=== PATIENT | female | born 1950 | race Caucasian/White ===

== ENCOUNTER 2025-06-16 15:42 | Emergency (ER) | payer MEDICARE, SELFPAY ==
[2025-06-16] VITALS (54 sets, daily range): BP systolic 107–250; BP diastolic 67–152; PULSE 49–72; RESP 11–30; TEMP 36.1; O2SAT 83–99
--- NOTE | 2025-06-16 15:30 | RT.EKG_ITS ---
APPROVED REPORT Exam: Resting ECG Reason for Exam: Chest Pain Patient Location: E HR:59 bpm ECG Measurements Heart Rate 59 AXIS WI 185 P 60 QRSd 100 QRS 25 QT 443 T 11 QTc 441 Conclusion Sinus bradycardia...rate< 60 Ventricular premature complex...V complex w/ short R-R interval Aberrant conduction of SV complex(es)...aberrant shape, [place] 80-220
--- NOTE | 2025-06-16 15:45 | DI.RAD_ITS ---
Exam(s) XR PORTABLE CHEST AP EXAM: XR PORTABLE CHEST AP CLINICAL HISTORY: Chest pain TECHNIQUE: 2D digital imaging was performed of the chest. One image was obtained. An AP view was obtained. COMPARISON: No exams were available for comparison FINDINGS: MEDIASTINUM: Normal. HEART: Normal. PULMONARY VASCULATURE: Normal. LUNGS: Clear. PLEURAL SPACE: No pleural effusion or pneumothorax. BONE:Within normal limits for the patient's age. OTHER FINDINGS:There are distended loops of bowel present. There is a large collection of air beneath the left hemidiaphragm. It appears to be bowel related and may represent the distended splenic flexure of the colon or the stomach. An acute abdominal series should be considered for further evaluation. Alternatively, a CT scan of the abdomen and pelvis may be obtained. IMPRESSION: 1. No acute pulmonary findings. 2. Distended bowel loops particularly in the left upper quadrant. If there is concern for bowel obstruction, a CT scan of the abdomen and pelvis should be considered. DATA REPOSITORY: RADIATION DOSE DELIVERED:
--- NOTE | 2025-06-16 15:45 | DI.CT_ITS ---
Exam(s) CT THORAX ABD/PEL CTA EXAM: CT THORAX ABD/PEL CTA CLINICAL HISTORY: Left sided Chest pain, retroperitoneal pain, HTN. TECHNIQUE: Imaging Protocol: Axial CT angiography was performed with multi- slice acquisition and multi-planar and/or 3D reconstructions. Lung Computer Aided Detection (CAD) was utilized. CONTRAST MATERIAL: Intravenous: Omnipaque 350 contrast volume:100 mL Oral: No COMPARISON: CR XR PORTABLE CHEST AP from 06/16/2025 FINDINGS: CHEST: Tracheobronchial tree: Patent where visualized. There is no evidence of bronchiectasis. Pulmonary parenchyma: No consolidation or dominant measurable mass. No architectural distortion. Pulmonary Arteries: No evidence of filling defect to suggest pulmonary emboli. Mediastinum and María: No dominant adenopathy or fluid collection. The esophagus is unremarkable. Visualized thyroid: Unremarkable. Pleura: No effusion or pneumothorax. Heart: The heart is not dilated. No coronary artery calcifications are seen. No pericardial effusion. Aorta: Thoracic aorta non-dilated. There is no evidence of dissection. Minimal atherosclerotic calcification is present. Soft Tissues: Unremarkable. Bones: Within normal limits for the patient's age. ABDOMEN AND PELVIS: Abdomen: Celiac axis/mesenteric arteries: No evidence of occlusion or significant stenosis. Renal Arteries: No evidence of occlusion or significant stenosis. Aorta: No evidence of occlusion or significant stenosis. No aneurysm or dissection. Mild atherosclerotic calcification is seen. Pelvis: Iliac Arteries: No evidence of occlusion or significant stenosis. Mild atherosclerotic calcification is seen. Common Femoral Arteries: No evidence of occlusion or significant stenosis. ABDOMEN: Liver: Normal density. There are simple cysts seen in the liver. The largest is in the dome of the liver and measures 2.3 x 1.4 cm. There are no suspicious hepatic masses. Portal, superior mesenteric and splenic veins: Unremarkable. Gallbladder and Biliary Tract: The gallbladder is absent. No significant biliary ductal dilatation is present. Pancreas: Normal density, no abnormal calcifications or inflammatory process. Spleen: Normal. Adrenals: No masses seen. Kidneys: Normal size, contour and axis. No radiodense stones or obstructive uropathy. No masses seen. There is a prominent left extrarenal pelvis. Bowel: There is a large amount of stool seen in the rectosigmoid colon. The stomach is not significantly distended limiting evaluation. There is no evidence of an appendicitis. The cecum is located in the left abdomen. The ileocecal valve is located on series 27, images 43-46. There is no pneumatosis. The cecum measures up to 8.8 cm in diameter. There is no bowel wall thickening the small bowel is of normal caliber. Peritoneal Cavity: No ascites, collection or mesenteric inflammatory response. No free air. Lymph Nodes: Within normal limits. Bones: Within normal limits for the patient's age. Soft Tissues: There are 2 small fat containing anterior abdominal wall hernia in the midline. PELVIS: Bladder: Symmetric distention, no gross wall thickening. Reproductive Organs: Unremarkable as visualized. Lymph Nodes: Within normal limits. Bones: Within normal limits for the patient's age. IMPRESSION: 1. There is redundant sigmoid colon with extension into the right upper quadrant. The sigmoid colon is distended with stool. There is marked dilatation of the large bowel proximal to the sigmoid colon all the way to the level of the cecum. The cecum is located in the left abdomen. The findings raise a question of a sigmoid volvulus. 2. There is no pneumatosis, bowel wall thickening or pneumoperitoneum. 3. No evidence of pulmonary emboli, thoracic aortic aneurysm or dissection. 4. No acute pulmonary process. 5. The preliminary [facility] report was reviewed. RADIATION DOSE DELIVERED: 550.14mGy.cm Total DLP DATA REPOSITORY: All CT scans at this facility are submitted to the National Radiology Data Registry (NRDR) Dose Index Registry (DIR) with the [employer] (ACR). RADIATION OPTIMIZATION: All CT scans at this facility use at least one of these dose optimization techniques: automated exposure control; mA and/or kV adjustment per patient size (includes targeted exams where dose is matched to clinical indication); or iterative reconstruction.
--- NOTE | 2025-06-16 15:54 | W.ED.GENAD ---
Discharge Plan Disposition Patient Disposition: Against Medical Advice Condition: Serious Discharge Details Clinical Impression: Sigmoid volvulus, Chilaiditi's syndrome, Hypertensive urgency, Chest pain Primary Care Provider: Unknown,Unknown ED Provider: Patti Trujillo Home Meds and New Rx's Prescriptions: Continued cetirizine 10 MG tablet 10 mg PO DAILY albuterol sulfate [Ventolin HFA] 200 PUFF HFA aerosol inhaler 2 puff Inhalation DIRECTED PRN fluocinolone 15 GM cream 1 inch Topical BID naproxen sodium 220 MG capsule 500 mg PO PRN PRN calcium 600 mg capsule 600 mg PO DAILY pantoprazole 40 mg tablet,delayed release (DR/EC) 40 mg PO DAILY cholecalciferol (vitamin D3) [Vitamin D3] 10 mcg (400 unit) tablet 800 unit PO DAILY zonisamide 100 mg capsule 200 mg PO QHS atorvastatin [Lipitor] 20 mg tablet 20 mg PO DAILY Dulera 100-5 mcg/actuation HFA aerosol inhaler 1 inh inhalation DAILY Rx Instructions: Take 1 inhalation during the day and 2 inhalations at HS Linzess 290 mcg capsule 290 mcg PO DAILY metoprolol succinate 25 mg tablet extended release 24 hr 25 mg PO DAILY aspirin 81 mg capsule 81 mg PO DAILY nitroglycerin 0.4 mg tablet, sublingual 0.4 mg sublingual Q5M Rx Instructions: do not exceed 3 doses per episode sumatriptan succinate 25 mg tablet 25 mg PO Q2H PRN Rx Instructions: do not exceed 8 doses per 24 hrs cyclobenzaprine 5 mg tablet 5 mg PO DAILY PRN trazodone 50 mg tablet 50 mg PO QHS PRN alum-mag hydroxide-simeth [Antacid] 200-200-20 mg/5 mL suspension 5 ml PO QHS PRN Rx Instructions: administer between meals and at bedtime fluorouracil 5 % cream 1 applic topical ONCE latanoprost 0.005 % drops 1 drp ophthalmic (eye) DAILY PRN triamcinolone acetonide 55 mcg intranasal DAILY PRN Discharge Instructions Instructions: Small bowel obstruction, High blood pressure emergencies, Chest Pain, Adult ED Additional Instructions: At this time you have chosen to leave AGAINST MEDICAL ADVICE. The CT image does show that you have concerning findings for something called a sigmoid volvulus which is a twisting of your bowel. This is a surgical emergency and needs to be dealt with as soon as possible. Delay or failure to address this may result in worsening condition, disability, worsening infection and up to and including . You also did present with chest pain and high blood pressure today. You were given an additional metoprolol 25 mg p.o. for your blood pressure and 10 mg of hydralazine IV. [facility] was consulted however, they do not have capacity at this time for that to accept the transfer. You also did decline for me to call other facilities. I do stressed the importance of your situation and that is very serious. Please return to the ER as soon as possible if you change your mind Referrals: [facility] [Outside] - 1 day Referral Note: Sigmoid volvulus Clinical Impression: Hypertensive urgency; Sigmoid volvulus; Chest pain HPI General Mode of arrival: EMS. Date/Time Provider Initiated Documentation: 06/16/25 15:50. Limitations to Documentation: no limitations. Information obtained by: patient, EMS, RN notes reviewed and old records reviewed. HPI Narrative: 74 year old female presents to the ER with cc of left sided CP which radiates into her back and left arm which began day before yesterday. Took 1 SL NTG at home and EMS gave 3 SL NTG with little relief, brought pain down from a 8/10 to 5/10. HTN with SBP of 200 on scene. Patient denies SOB, Productive cough, swelling legs, N/V/D or recent trips in a plane or a car. She is a former fake smoker. Hx of Kalpana cholesterol, Anxiety, GERD, Bronciectasis, Asthma, Related Data Home Medications ?Medication ?Instructions ?Recorded ?Confirmed albuterol sulfate 90 mcg/actuation 2 puff inhalation DIRECTED PRN 03/01/14 06/16/25 aerosol inhaler (Ventolin HFA) cetirizine 10 mg tablet 10 mg PO DAILY 03/01/14 06/16/25 fluocinolone 0.025 % topical cream 1 inch topical BID 03/01/14 06/16/25 naproxen sodium 220 mg capsule 500 mg PO PRN PRN 03/01/14 06/16/25 aluminum-mag hydroxide-simethicone 5 ml PO QHS PRN 06/16/25 06/16/25 200 mg-200 mg-20 mg/5 mL oral susp (Antacid) aspirin 81 mg capsule 81 mg PO DAILY 06/16/25 06/16/25 atorvastatin 20 mg tablet (Lipitor) 20 mg PO DAILY 06/16/25 06/16/25 calcium 600 mg capsule 600 mg PO DAILY 06/16/25 06/16/25 cholecalciferol (vitamin D3) 10 800 unit PO DAILY 06/16/25 06/16/25 mcg (400 unit) tablet (Vitamin D3) cyclobenzaprine 5 mg tablet 5 mg PO DAILY PRN 06/16/25 06/16/25 fluorouracil 5 % topical cream 1 applic topical ONCE 06/16/25 06/16/25 latanoprost 0.005 % eye drops 1 drp ophthalmic (eye) DAILY PRN 06/16/25 06/16/25 linaclotide 290 mcg capsule 290 mcg PO DAILY 06/16/25 06/16/25 (Linzess) metoprolol succinate 25 mg 25 mg PO DAILY 06/16/25 06/16/25 tablet,extended release 24 hr mometasone-formoterol HFA 100 1 inh inhalation DAILY 06/16/25 06/16/25 mcg-5 mcg/actuation aerosol inhaler (Dulera) nitroglycerin 0.4 mg sublingual 0.4 mg sublingual Q5M 06/16/25 06/16/25 tablet pantoprazole 40 mg tablet,delayed 40 mg PO DAILY 06/16/25 06/16/25 release sumatriptan succinate 25 mg tablet 25 mg PO Q2H PRN 06/16/25 06/16/25 trazodone 50 mg tablet 50 mg PO QHS PRN 06/16/25 06/16/25 triamcinolone acetonide 55 mcg intranasal DAILY PRN 06/16/25 06/16/25 zonisamide 100 mg capsule 200 mg PO QHS 06/16/25 06/16/25 Allergies Allergy/AdvReac Type Severity Reaction Status Date / Time Penicillins Allergy Severe Anaphylaxsi Unverified 06/16/25 15:57 s oxcarbazepine Allergy Intermediate Skin Rash Unverified 06/16/25 15:57 Tetracyclines Allergy Intermediate Skin Rash Unverified 06/16/25 15:57 adhesive Allergy Mild Skin Rash Unverified 06/16/25 15:57 Latex, Natural Rubber Allergy Mild Skin Rash Unverified 06/16/25 15:57 hydroxyzine AdvReac Intermediate anxiety Unverified 06/16/25 15:57 zolpidem (Zolpidem) AdvReac Unknown unknown Unverified 06/16/25 15:57 General Stated Complaint: Chest Pain RADHA: 3 Review of Systems All systems reviewed & are unremarkable except as noted in HPI and below Constitutional Constitutional: Reports as per HPI and Reports headache(s) ENT Ears, Nose, Mouth, and Throat: Reports headache(s) Cardiovascular Cardiovascular: Reports chest pain, Denies syncope, Denies pedal edema, Denies leg edema, Denies lightheadedness, Reports radiating jaw, neck or arm pain and Denies dyspnea Respiratory Respiratory: Denies cough and Denies dyspnea Gastrointestinal Gastrointestinal: Denies abdominal pain, Reports constipation, Denies nausea and Denies vomiting Musculoskeletal Musculoskeletal: Reports back pain Neurologic Neurologic: Denies syncope and Reports headache(s) Exam Narrative Exam Narrative: Constitutional: Alert and oriented x3. Appears stated age. Normal body habitus. Head: Normocephalic, no trauma. Eyes: Pupils PERRL, Red reflex noted, EOM's intact. Eyelids symmetrical without lesions, discharge, or swelling. ENT: Bilateral TM's WNL, External ear normal to inspection, no mastoid TTP, swelling, or erythema, Nasal turbinates WNL, no nasal discharge. Normal dentition, Posterior pharynx WNL, no exudate. Chest: RRR, Normal S1, S2, distal pulses intact. Resp: Lungs clear to auscultation bilaterally, no wheezes, rales, or rhonchi. Abdomen: Distended, non-tender to palpation Musculoskeletal: Normal gait, Moves all 4 extremities without difficulty. Skin: No suspicious rashes or lesions. Capillary refill less than 2 sec. Neurologic: Cranial nerves II-XII intact. Alert and oriented x 3. Motor: No deficits noted. Sensory: Intact bilaterally all 4 extremities. Hematologic/Lymphatic: No ecchymosis, no lymphadenopathy. Course Vital Signs Vital signs: Vital Signs Temperature 36.1 C L 06/16/25 15:46 Pulse 61 06/16/25 15:46 Respiratory Rate 12 06/16/25 15:46 Blood Pressure 141/90 H 06/16/25 15:46 Pulse Oximetry 98 06/16/25 15:46 Temperature 36.1 C L 06/16/25 15:46 Temperature Source Temporal Artery Scan 06/16/25 15:46 Pulse 61 06/16/25 15:46 Respiratory Rate 12 06/16/25 15:46 Blood Pressure 141/90 H 06/16/25 15:46 Blood Pressure Position Sitting 06/16/25 15:46 Pulse Oximetry 98 06/16/25 15:46 Oxygen Delivery Method Room Air 06/16/25 15:46 Oxygen Flow Rate 0 06/16/25 15:46 Medical Decision Making 74 year old female presents to the ER with cc of left sided CP which radiates into her back and left arm which began day before yesterday. Took 1 SL NTG at home and EMS gave 3 SL NTG with little relief, brought pain down from a 05/09 to 02/06. HTN with SBP of 200 on scene. Patient denies SOB, Productive cough, swelling legs, N/V/D or recent trips in a plane or a car. She is a former fake smoker. Hx of Kalpana cholesterol, Anxiety, GERD, Bronciectasis, Asthma, No leukocytosis, CMP largely within normal limits anion gap 12.6 creatinine 1.1 GFR is 52.4 proBNP slightly elevated at 471. Serial troponins are downtrending, lipase 40. Received call from [facility] for concern for sigmoid volvulus, will page surgery. Patient states that she has had increased dilated bowel for years, she does state that she has not had a bowel movement in the last 3 to 4 days but denies any abdominal pain. She is complaining of a headache and is requesting to take one of her 25 mg sumatriptan tablets. 1938: Surgery paged. 1945: Spoke with Dr. Jodie Perla with Surgery who agrees to look at CT and eval patient. 2030: Dr. Perla here at for eval, 2100: Informed by my colleague that patient is refusing surgery or further evaluation and treatment here and is requesting to be transferred to [facility]. Please see Dr. Lindsey consult note. Images pushed to [facility]. 2111: Upon further discussion with patient she is requesting to go to [facility] and is requesting I call her Neurologist, discussed that I will speak to the surgeon thermometer production worker, transfer center called. Patient remains hypertensive despite an additional 25 mg of metoprolol which patient normally takes, 10 mg of hydralazine IV ordered will continue to monitor. 2133: Spoke with transfer center they do not have capacity to take patient at this time. 2210: Discussed at length with patient regarding situation and the volvulus with recommendation for further surgical care patient is refusing to have surgery here and would like to speak with her neurologist at [facility] Dr. Matos, discussed risks and benefits up to including disability and worsening condition. Patient was just given hydralazine 10 mg IV she is on the phone speaking with her family for a ride. Patient will be leaving AGAINST MEDICAL ADVICE. At this time her blood pressure is 201/79 heart rate of 63 O2 sat is 98% on room air respirations 14. I also did offer to speak with [facility] for transfer which patient declined at this time. 2212: Spoke with Dr. Marcano with general surgery at [facility], unfortunately with no capacity at [facility] and capacity and services here they are not able to accept patient at this time. She recommends to defer to Surgeon here. BP at time of AMA is improved after Hydralazine 195/67 Patient requesting to leave AMA. The patient appears clinically sober and is not under the influence of any known substances. Discussed risks and benefits with patient. Patient verbalizes understanding of situation and the risks of leaving including worsening condition, developing disability, including but not limited to . Discussed results of labs and imaging, if they were performed and recommendations for further treatment and/or observation. The patient verbalizes understanding of the results discussed. At this time patient has opted to leave against medical advice. Patient is alert and oriented and has the capacity to make own decisions. Medical Records Medical records reviewed: Yes I reviewed the patient's medical records. Imaging Data Radiologic Study: Imaging: CT Scan Radiologist's impression: COMPARISON: CR XR PORTABLE CHEST AP 06/16/2025 16:41 FINDINGS: VASCULATURE: Pulmonary arteries: No pulmonary emboli. Aorta: No aortic aneurysm. No aortic dissection. Celiac trunk and mesenteric arteries: No occlusion or significant stenosis. Renal arteries: No occlusion or significant stenosis. Right iliac arteries: No occlusion or significant stenosis. Left iliac arteries: No occlusion or significant stenosis. CHEST: Lungs: Scattered microatelectasis. Pleural spaces: No pneumothorax. No pleural effusion. Heart: Mild cardiomegaly. Diaphragm: Elevated left hemidiaphragm. ABDOMEN AND PELVIS: Liver: Benign hepatic cyst(s), no followup necessary. Gallbladder and biliary ducts: Cholecystectomy. Typical caliber of the CBD for a post cholecystectomy patient. Pancreas: No mass. No ductal dilation. Spleen: No splenomegaly. Adrenal glands: No mass. Kidneys and ureters: Mild left hydronephrosis, renal pelvic dilation greater than caliceal dilation, suggesting chronic UPJ obstruction . No significant right hydronephrosis. No renal masses. Stomach and bowel: Stomach is decompressed. No pathologic dilation of the duodenum. Focal twisting of the sigmoid colon along its mesentery, left lower quadrant; dilation of more proximal colon with gas and stool measuring up to 10 cm in diameter; large volume of stool in the cecum. No wall thickening of the colon. No focal pneumatosis. A few fluid-filled small bowel loops without evidence of a significant small bowel obstruction. Left-sided small bowel loops are upper limits of normal. Appendix: No evidence of appendicitis. Intraperitoneal space: No free air. No significant fluid collection. Urinary bladder: No mass. Reproductive: Unremarkable as visualized. Lymph nodes: No enlarged lymph nodes. Bones/joints: Chronic healed left rib deformities. No acute fracture or subluxation. Soft tissues: Unremarkable. IMPRESSION: 1. Sigmoid volvulus. Large volume of more proximal colonic gas and stool without evidence of colitis. Minor small bowel ileus without mouna mechanical obstruction. 2. Mild left hydronephrosis, renal pelvic dilation greater than caliceal dilation, suggesting chronic UPJ obstruction . 3. Additional findings as described. Thank you for allowing us to participate in the care of your patient. Dictated and Authenticated by: Taylor Davis MD Lab Data Lab results reviewed: Yes I reviewed the patient's lab results. Labs: Laboratory Tests Range/Units 06/16/25 06/16/25 06/16/25 15:20 16:48 17:48 WBC (4.4-10.8) 10^3/uL 9.12 RBC (3.93-5.22) 10^6/uL 4.52 Hgb (11.2-15.7) g/dL 12.5 Hct (36.0-46.0) % 38.3 MCV (80-95) fL 85 MCH (27.0-33.0) pg 27.7 MCHC (32.0-36.0) % 32.6 RDW (11.7-14.6) % 13.0 Plt Count (130-400) 10^3/uL 244 MPV (8.0-11.0) fL 9.9 Immature Gran % % 0.2 Neutrophils % % 51.3 Lymphocytes % % 36.2 Monocytes % % 8.6 Eosinophils % % 3.0 Basophils % % 0.7 Nucleated RBC % (0.0-0.3) % 0.0 Absolute Neutrophils (1.2-6.7) 10^3/uL 4.69 Absolute Lymphocytes (1.2-3.4) 10^3/uL 3.30 Absolute Monocytes (0.1-0.8) 10^3/uL 0.78 Absolute Eosinophils (0.0-0.7) 10^3/uL 0.27 Absolute Basophils (0.0-0.2) 10^3/uL 0.06 Sodium (136-145) mmol/L 143 Potassium (3.5-5.1) mmol/L 3.6 Chloride (98-107) mmol/L 105 Carbon Dioxide (21.0-32.0) mmol/L 25.4 Anion Gap (3-11) mmol/L 12.6 H BUN (7-18) mg/dL 18 Creatinine (0.55-1.02) mg/dL 1.1 H Est GFR (CKD-EPI 2020) (mL/min/1.73m2) 52.40 Glucose (74-106) mg/dL 84 Calcium (8.5-10.1) mg/dL 9.6 Magnesium (1.8-2.4) mg/dL 2.0 Total Bilirubin (0.2-1.0) mg/dL 0.8 AST (15-37) U/L 12 L ALT (14-59) U/L 16 Alkaline Phosphatase (46-116) U/L 59 Troponin I Cancelled 6 5 NT-Pro-B Natriuret Pep (<300) pg/mL 471 H Total Protein (6.4-8.2) g/dL 7.3 Albumin (3.4-5.0) g/dL 4.4 Lipase (<78) U/L 40 Range/Units 06/16/25 18:52 WBC (4.4-10.8) 10^3/uL RBC (3.93-5.22) 10^6/uL Hgb (11.2-15.7) g/dL Hct (36.0-46.0) % MCV (80-95) fL MCH (27.0-33.0) pg MCHC (32.0-36.0) % RDW (11.7-14.6) % Plt Count (130-400) 10^3/uL MPV (8.0-11.0) fL Immature Gran % % Neutrophils % % Lymphocytes % % Monocytes % % Eosinophils % % Basophils % % Nucleated RBC % (0.0-0.3) % Absolute Neutrophils (1.2-6.7) 10^3/uL Absolute Lymphocytes (1.2-3.4) 10^3/uL Absolute Monocytes (0.1-0.8) 10^3/uL Absolute Eosinophils (0.0-0.7) 10^3/uL Absolute Basophils (0.0-0.2) 10^3/uL Sodium (136-145) mmol/L Potassium (3.5-5.1) mmol/L Chloride (98-107) mmol/L Carbon Dioxide (21.0-32.0) mmol/L Anion Gap (3-11) mmol/L BUN (7-18) mg/dL Creatinine (0.55-1.02) mg/dL Est GFR (CKD-EPI 2020) (mL/min/1.73m2) Glucose (74-106) mg/dL Calcium (8.5-10.1) mg/dL Magnesium (1.8-2.4) mg/dL Total Bilirubin (0.2-1.0) mg/dL AST (15-37) U/L ALT (14-59) U/L Alkaline Phosphatase (46-116) U/L Troponin I Cancelled NT-Pro-B Natriuret Pep (<300) pg/mL Total Protein (6.4-8.2) g/dL Albumin (3.4-5.0) g/dL Lipase (<78) U/L PFSH All Active Problems (Updated 06/16/25 @ 22:08 by Patti Trujillo NP) Chest pain (Acute) Hypertensive urgency (Acute) Sigmoid volvulus (Acute) Chilaiditi's syndrome (Acute) Social History Smoking/Tobacco Use Status: Former Tobacco Use Smoking risk assessment performed?: Yes Alcohol Intake: current Drug use: Current Sobriety
[2025-06-16 16:03] LABS: Abs Immature Grans 0.02 10^3/uL (0.0-0.06); HCT 38.3 % (36.0-46.0); HGB 12.5 g/dL (11.2-15.7); Immature Grans % 0.2 %; MCH 27.7 pg (27.0-33.0); MCHC 32.6 % (32.0-36.0); MCV 85 fL (80-95); MPV 9.9 fL (8.0-11.0); Platelet Count 244 10^3/uL (130-400); RBC 4.52 10^6/uL (3.93-5.22); RDW 13.0 % (11.7-14.6); RDW-SD 39.8 fL; WBC 9.12 10^3/uL (4.4-10.8)
[2025-06-16 17:00] LABS: ALT 16 U/L (14-59); AST 12 U/L (15-37); Albumin 4.4 g/dL (3.4-5.0); Alkaline Phosphatase 59 U/L (46-116); Anion Gap 12.6 mmol/L (3-11); BUN 18 mg/dL (7-18); Bilirubin, Total 0.8 mg/dL (0.2-1.0); CO2 25.4 mmol/L (21.0-32.0); Calcium 9.6 mg/dL (8.5-10.1); Chloride 105 mmol/L (98-107); Estimated GFR 52.40 (mL/min/1.73m2); Glucose 84 mg/dL (74-106); Lipase 40 U/L (<78); Magnesium 2.0 mg/dL (1.8-2.4); NT-proBNP 471 pg/mL (<300); Potassium 3.6 mmol/L (3.5-5.1); Sodium 143 mmol/L (136-145); Total Protein 7.3 g/dL (6.4-8.2)
[2025-06-16 17:17] LABS: Troponin I 6 ng/L (<or=51)
[2025-06-16] MEDS: Normal Saline Flush 10 ML SYR IVP (18:01)
[2025-06-16] MEDS: Omnipaque 350 MG/ML 100 ML BTL IJ (18:01)
[2025-06-16] MEDS: Normal Saline - Diluent 50 ML VIAL IJ (18:01)
[2025-06-16 18:16] LABS: Troponin I 5 ng/L (<or=51)
[2025-06-16] MEDS: Metoprolol 25 MG TAB PO (19:07)
--- NOTE | 2025-06-16 19:25 | DI.VRAD_ITS ---
Addendum created by Taylor Davis MD on 06/16/2025 7:28:04 PM EDT: This report contains findings that may be critical to patient care. The pertinent findings were communicated via telephone with JENNIFER HOFF at 19:27 EDT on 06/16/2025. The findings were acknowledged and understood. Initial report created on 06/16/2025 7:25:18 PM EDT: PROCEDURE INFORMATION: Exam: CTA Chest With Contrast CTA Abdomen and Pelvis With Contrast Exam date and time: 06/16/2025 18:04 Age: 74 years old Clinical indication: Other: Left sided chest pain, retroperitoneal pain, HTN TECHNIQUE: Imaging protocol: Computed tomographic angiography of the chest with contrast. Exam focused on the arteries. Computed tomographic angiography of the abdomen and pelvis with contrast. Exam focused on the arteries. 3D rendering (Not supervised by radiologist): MIP and/or 3D reconstructed images were created by the technologist. Contrast material: OMNIPAQUE 350; Contrast volume: 100 ml; Contrast route: INTRAVENOUS (IV); COMPARISON: CR XR PORTABLE CHEST AP 06/16/2025 16:41 FINDINGS: VASCULATURE: Pulmonary arteries: No pulmonary emboli. Aorta: No aortic aneurysm. No aortic dissection. Celiac trunk and mesenteric arteries: No occlusion or significant stenosis. Renal arteries: No occlusion or significant stenosis. Right iliac arteries: No occlusion or significant stenosis. Left iliac arteries: No occlusion or significant stenosis. Thyroid: Small thyroid nodule statistically likely benign. Follow-up as per institutional protocol. CHEST: Lungs: Scattered microatelectasis. Pleural spaces: No pneumothorax. No pleural effusion. Heart: Mild cardiomegaly. Diaphragm: Elevated left hemidiaphragm. ABDOMEN AND PELVIS: Liver: Benign hepatic cyst(s), no followup necessary. Gallbladder and biliary ducts: Cholecystectomy. Typical caliber of the CBD for a post cholecystectomy patient. Pancreas: No mass. No ductal dilation. Spleen: No splenomegaly. Adrenal glands: No mass. Kidneys and ureters: Mild left hydronephrosis, renal pelvic dilation greater than caliceal dilation, suggesting chronic UPJ obstruction . No significant right hydronephrosis. No renal masses. Stomach and bowel: Stomach is decompressed. No pathologic dilation of the duodenum. Focal twisting of the sigmoid colon along its mesentery, left lower quadrant; dilation of more proximal colon with gas and stool measuring up to 10 cm in diameter; large volume of stool in the cecum. No wall thickening of the colon. No focal pneumatosis. A few fluid-filled small bowel loops without evidence of a significant small bowel obstruction. Left-sided small bowel loops are upper limits of normal. Appendix: No evidence of appendicitis. Intraperitoneal space: No free air. No significant fluid collection. Urinary bladder: No mass. Reproductive: Unremarkable as visualized. Lymph nodes: No enlarged lymph nodes. Bones/joints: Chronic healed left rib deformities. No acute fracture or subluxation. Soft tissues: Unremarkable. IMPRESSION: 1. Sigmoid volvulus. Large volume of more proximal colonic gas and stool without evidence of colitis. Minor small bowel ileus without mouna mechanical obstruction. 2. Mild left hydronephrosis, renal pelvic dilation greater than caliceal dilation, suggesting chronic UPJ obstruction . 3. Additional findings as described. Dictated and Authenticated by: Taylor Davis MD. Orderin Cassandra Armstrong MD
[2025-06-16] MEDS: ACETAMINOPHEN 1,000 MG/100 ML BAG 400 MG IVPB (19:56)
[2025-06-16] MEDS: Normal Saline 500 ML IV (19:57)
--- NOTE | 2025-06-16 21:06 | W.SURGCON ---
Date of service: 06/16/25 Time of Service: 21:06 Assessment and Plan Assessment and plan (1) Sigmoid volvulus: Status: Acute Assessment and plan: Patient is a 74-year-old female who presents to the ED today with ongoing chest pain radiating down her left arm, and hypertension. She also on further discussion with her endorses that she has not had a bowel movement in 3 to 4 days and endorses minimal flatus. She denies overt abdominal pain, nausea, vomiting, fevers, chills. On presentation she is afebrile and hypertensive. On exam her abdomen is distended, nontender to palpation, and well healed midline incision. Her laboratory findings are significant for an elevated BNP however otherwise they are unremarkable. During her workup in the emergency department she had a CT chest, abdomen and pelvis which was concerning for sigmoid volvulus. There is no evidence of free air or pneumatosis on this imaging. The finding of sigmoid volvulus was discussed with her extensively in the emergency department. It was discussed with her that the recommendation would be to undergo endoscopic decompression with colonoscopy as an attempted first-line management as soon as possible. It was also discussed with her that pending the ability to perform endoscopic decompression she may require further surgery with a possible exploratory laparotomy, bowel resection, and possible colostomy. It was discussed with her that without further intervention there is risk for ischemia of the colon and potential perforation which could be life-threatening. She requested to be transferred to [facility] for further care and intervention given that all of her medical care is performed there. She refused any procedural or surgical intervention here this evening. She was cautioned regarding delaying treatment however is persistent about further care being performed at [facility]. This was discussed with the ED provider who will assist with next steps for transfer and Surgical Consultation. History of Present Illness Narrative: Patient is a 74-year-old female who presents to the ED today with ongoing chest pain radiating down her left arm, and hypertension. She states for the past 3 to 4 days she has had ongoing hypertension and intermittent chest pain. She states she has had pain like this before many years ago but this is much worse. She denies any overt cardiac history but states she follows closely with a neurologist at [facility]. She notes that she has a longstanding history of constipation. She states that she usually takes bowel meds including Linzess. She states that since she has had ongoing chest pain and hypertension she has not taken her regular bowel medications this week. She notes that her last bowel movement was 4 days ago. She states that she is passing a small amount of flatus. This is not entirely unusual for her. She notes that she has not eaten today given her ongoing chest pain. She denies associated nausea, vomiting, fevers, chills, abdominal pain. She endorses a past surgical history of a large abdominal incision for a cholecystectomy. She is unsure why she had an open procedure for this cholecystectomy in [place]. She states she has had a colonoscopy many years ago which was normal. She notes a family history of nonspecific bowel problems. Review of Systems Constitutional Constitutional: Denies chills, Denies fatigue, Denies fever(s), Denies headache(s) and Denies weakness Eyes Eyes: Denies change in vision ENT Ears, Nose, Mouth, and Throat: Denies dizziness, Denies headache(s), Denies nasal congestion and Denies sore throat Gastrointestinal Gastrointestinal: Denies abdominal pain, Denies nausea and Denies vomiting Musculoskeletal Musculoskeletal: Denies arthralgias Integumentary/Breasts Skin/Breast: Denies new lesions and Denies rash Neurologic Neurologic: Denies dizziness, Denies headache(s) and Denies weakness Endocrine Endocrine: Denies fatigue PFSH All Active Problems (Updated 06/16/25 @ 21:20 by Allison Singh MD) Sigmoid volvulus (Acute) Chilaiditi's syndrome (Acute) Social History Smoking/Tobacco Use Status: Former Tobacco Use Smoking risk assessment performed?: Yes Alcohol Intake: current Drug use: Current Sobriety Exam Narrative Exam Narrative: General: Well appearing, no acute distress. Skin: Good turgor, no visible rashes or lesion HEENT: Normocephalic, atraumatic, no visible masses, neck supple CV: Regular rate Lungs: Bilateral equal chest rise, non-labored breathing Abdomen: Soft, non-tender to palpation, distended, no rebound or guarding Extremities: Warm, well perfused Neurologic: No focal deficits Psychiatric: Alert and oriented, normal mood and affect Results Last Vital Signs Temp 36.1 C L 06/16/25 15:46 Pulse 59 L 06/16/25 19:21 Resp 18 06/16/25 19:21 BP 171/105 H 06/16/25 18:46 Pulse Ox 97 06/16/25 19:21 Labs 06/16/25 15:20 06/16/25 15:20 Labs: Laboratory Results - last 24 hr 06/16/25 06/16/25 06/16/25 15:20 16:48 17:48 WBC 9.12 RBC 4.52 Hgb 12.5 Hct 38.3 MCV 85 MCH 27.7 MCHC 32.6 RDW 13.0 Plt Count 244 MPV 9.9 Immature Gran % 0.2 Neutrophils % 51.3 Lymphocytes % 36.2 Monocytes % 8.6 Eosinophils % 3.0 Basophils % 0.7 Nucleated RBC % 0.0 Absolute Neutrophils 4.69 Absolute Lymphocytes 3.30 Absolute Monocytes 0.78 Absolute Eosinophils 0.27 Absolute Basophils 0.06 Sodium 143 Potassium 3.6 Chloride 105 Carbon Dioxide 25.4 Anion Gap 12.6 H BUN 18 Creatinine 1.1 H Est GFR (CKD-EPI 2020) 52.40 Glucose 84 Calcium 9.6 Magnesium 2.0 Total Bilirubin 0.8 AST 12 L ALT 16 Alkaline Phosphatase 59 Troponin I Cancelled 6 5 NT-Pro-B Natriuret Pep 471 H Total Protein 7.3 Albumin 4.4 Lipase 40 06/16/25 18:52 WBC RBC Hgb Hct MCV MCH MCHC RDW Plt Count MPV Immature Gran % Neutrophils % Lymphocytes % Monocytes % Eosinophils % Basophils % Nucleated RBC % Absolute Neutrophils Absolute Lymphocytes Absolute Monocytes Absolute Eosinophils Absolute Basophils Sodium Potassium Chloride Carbon Dioxide Anion Gap BUN Creatinine Est GFR (CKD-EPI 2020) Glucose Calcium Magnesium Total Bilirubin AST ALT Alkaline Phosphatase Troponin I Cancelled NT-Pro-B Natriuret Pep Total Protein Albumin Lipase Imaging Imaging Studies: CT Abdomen/Pelvis 06/16/25 Impression: 1. Sigmoid volvulus. Large volume of more proximal colonic gas and stool without evidence of colitis. Minor small bowel ileus without mouna mechanical obstruction. 2. Mild left hydronephrosis, renal pelvic dilation greater than caliceal dilation, suggesting chronic UPJ obstruction. 3. Additional findings as described.
[2025-06-16] MEDS: hydrALAZINE 20 MG/ML VIAL 10 MG IVP (21:54)
== END 2025-06-16 22:40 | disposition left against medical advice (07) ==
PROVIDERS: Emergency Provider Registered Nurse Emergency
DX: R07.9 Chest pain, unspecified (principal); K56.2 Volvulus; K59.89 Other specified functional intestinal disorders; I16.0 Hypertensive urgency; I10 Essential (primary) hypertension; Z79.82 Long term (current) use of aspirin; Z87.891 Personal history of nicotine dependence
CPT/HCPCS: 00123; 71275; 80053; 83690; 93005; 96365; 96375; 99285; 71045; 74174; 83735; 83880; 84484; 85025; 93010; J0131; J0360; J3490

== ENCOUNTER 2025-06-17 18:03 | Observation (INO) | payer MEDICARE, SELFPAY ==
[2025-06-17] VITALS (96 sets, daily range): BP systolic 142–241; BP diastolic 65–110; PULSE 48–95; RESP 9–25; TEMP 36.8; O2SAT 91–99
--- NOTE | 2025-06-17 18:00 | RT.EKG_ITS ---
APPROVED REPORT Exam: Resting ECG Reason for Exam: AMS, Positive Blood Cultures Patient Location: E HR:57 bpm ECG Measurements Heart Rate 57 AXIS WV 195 P 69 QRSd 98 QRS 43 QT 531 T -88 QTc 516 Conclusion Sinus bradycardia...rate< 60 Abnormal T, consider ischemia, anterior leads...T <-0.20mV, V2-V4 Prolonged QT interval...QTc >500mS
--- NOTE | 2025-06-17 18:15 | DI.RAD_ITS ---
Exam(s) XR CHEST 2V PA LATERAL EXAM: XR CHEST 2V PA LATERAL CLINICAL HISTORY: chest pain. TECHNIQUE: 2D digital imaging was performed. COMPARISON: CR XR PORTABLE CHEST AP from 06/16/[address] THORAX ABD/PEL CTA from 06/16/2025 FINDINGS: 2 views: Heart size is normal. The mediastinum is not widened. Elevated left hemidiaphragm is again noted with intraluminal air within what is probably the splenic flexure of the colon at this level. There is some platelike atelectasis in the left lung base just above this level, best seen on the lateral view. No infiltrates nor pleural effusions. No pulmonary edema. There is no herniation of abdominal contents into the chest. IMPRESSION: There is subsegmental platelike atelectasis in the left lung base just above the elevated left hemidiaphragm. There are no confluent infiltrates nor pleural effusions. DATA REPOSITORY: RADIATION DOSE DELIVERED:
[2025-06-17 18:37] LABS: Abs Immature Grans 0.02 10^3/uL (0.0-0.06); HCT 38.1 % (36.0-46.0); HGB 12.4 g/dL (11.2-15.7); Immature Grans % 0.2 %; MCH 27.3 pg (27.0-33.0); MCHC 32.5 % (32.0-36.0); MCV 84 fL (80-95); MPV 9.8 fL (8.0-11.0); Platelet Count 272 10^3/uL (130-400); RBC 4.54 10^6/uL (3.93-5.22); RDW 13.1 % (11.7-14.6); RDW-SD 39.8 fL; WBC 8.99 10^3/uL (4.4-10.8)
[2025-06-17 18:59] LABS: ALT 17 U/L (14-59); AST 15 U/L (15-37); Albumin 4.2 g/dL (3.4-5.0); Alkaline Phosphatase 54 U/L (46-116); Anion Gap 12.1 mmol/L (3-11); BUN 28 mg/dL (7-18); Bilirubin, Total 0.8 mg/dL (0.2-1.0); CO2 24.9 mmol/L (21.0-32.0); Calcium 9.6 mg/dL (8.5-10.1); Chloride 104 mmol/L (98-107); Estimated GFR 36.12 (mL/min/1.73m2); Glucose 106 mg/dL (74-106); Lipase 52 U/L (<78); Magnesium 2.0 mg/dL (1.8-2.4); NT-proBNP 1000 pg/mL (<300); Sodium 141 mmol/L (136-145); Total Protein 7.4 g/dL (6.4-8.2); Troponin I 7 ng/L (<or=51)
[2025-06-17 19:04] LABS: Potassium 2.6 mmol/L (3.5-5.1)
[2025-06-17] MEDS: MAGNESIUM SULFATE 1 GM/100 ML BAG IV_INF (19:12)
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
[2025-06-17 19:39] LABS: Troponin I 7 ng/L (<or=51)
[2025-06-17] MEDS: Potassium Chloride 20 MEQ TABCR 40 MEQ PO ×2 (20:34→22:13)
[2025-06-17] MEDS: POTASSIUM CHLORIDE 10 MEQ/100 ML BAG 100 MEQ IV_INF (20:35)
[2025-06-17] MEDS: Normal Saline 1,000 ML 125 ML IV (20:54)
[2025-06-17 21:11] LABS: Troponin I 7 ng/L (<or=51)
--- NOTE | 2025-06-17 22:22 | NUR.NOTE ---
ed PA aware of PTs BPNursing Note:
[2025-06-17] MEDS: Metoprolol 25 MG TAB PO (22:26)
--- NOTE | 2025-06-17 22:30 | DI.RAD_ITS ---
Exam(s) XR ABDOMEN FLAT UPRIGHT EXAM: 2D digital imaging was performed. CLINICAL HISTORY: abnormal gas pattern. COMPARISON: CT CT THORAX ABD/PEL CTA from 06/16/2025 TECHNIQUE: Supine and uprightSupine and Lateral views of the abdomen was performed. Images were obtained. FINDINGS: LUNG BASES: Clear. BOWEL GAS PATTERN: Though there continues to be mild to moderately dilated loops of small and large bowel, they have shown significant decrease in size compared to the examination from 06/16/2025. FREE AIR: None. CALCIFICATIONS: No radiopaque calcifications. OSSEOUS STRUCTURES: Normal for age. There is a mild right convex lumbar scoliosis. OTHER FINDINGS: There are surgical clips in the right upper quadrant of the abdomen. IMPRESSION: 1. Decrease in size of the small and large bowel wall dilatation since 06/16/2025. This may represent an ileus but bowel obstruction cannot be excluded. Continued follow-up is recommended. 2. The preliminary [facility] report was reviewed. DATA REPOSITORY: RADIATION DOSE DELIVERED:
--- NOTE | 2025-06-17 22:41 | NUR.NOTE ---
PT refused 2nd bag of IV potassium. ED provider aware and PO was ordered and given instead. Nursing Note:
--- NOTE | 2025-06-17 23:04 | W.SURGCON ---
Date of service: 06/18/25 Time of Service: 06:21 Assessment and Plan Assessment and plan (1) Sigmoid volvulus: Status: Acute Assessment and plan: Based on the interval history and the imaging tonight compared to last night, I thing it is unlikely that she is currently volvulized. The redundancy of her colon, however, makes this very hard to say for certain. In that regard, I do think a period of observation is warrented. Furthermore, she is quite hypertensive, and I do think that should be treated as well. Simethicone might help releive some gas. I would also keep her on sips of clears until we have a better sense of her gastrointestinal motility. I would also add standing miralax for laxative effect. I was able to review her records from [facility], and she has some imaging dating back to at least 2013 that demonstrate gaseous distention of the large and small bowel. Honestly, those images look worse than what was obtained here the other day. Putting this altogether, this seems most consistent with slow colonic transit or chronic adult constipation. That would certainly put her at risk for sigmoid volvulus. We talked about some basic management strategies of this. Generally, I do recommend daily MiraLAX and Dulcolax for the osmotic laxative effect, and the motility benefit as well. In her opinion, she has had the most success with Linzess. In the big picture of things, I am a little skeptical that they will be any simple medical intervention for this. Ultimately, I would encourage her to give strong consideration for how she would like to be managed if it is the case that she actually volvulized this in the future. Honestly, I think elective colostomy would probably be the the most effective solution for her. But that certainly carries with it a fair amount of comorbidity and the bigger picture of her health care. Certainly, are more than happy to help with some of these issues if she is interested, but it seems like she really prefers having her care consolidated at [facility]. In that regards, following up with their GI motility specialist, or general surgeons is probably a very reasonable approach as well. History of Present Illness History of Present Illness Chief Complaint: Left-sided flank pain Narrative: Pat is 74 years old. She was in the emergency department the night of the complaining of left-sided chest and back pain. She was hypertensive at that time. She underwent a CT angiogram of the chest abdomen and pelvis demonstrated massively dilated colon and concern for sigmoid volvulus. My partner actually saw her in consultation then, and recommended admission, and possible detorsion. Pat refused admission to [facility], preferring transfer to [facility]. As best I can tell, the case was discussed with physicians at [facility], but they did not have capacity to accept her in transfer. Ultimately, she left AGAINST MEDICAL ADVICE from the emergency department here at [facility]. She came back to the emergency department on the night of the . She had similar symptoms, although less intense. She reported that she had had a bowel movement while at home. She had also reached out to [facility] multiple times throughout the course of the day seeing if she could be admitted there. During the second emergency department visit, she remained hypertensive. She underwent plain films of the chest abdomen and pelvis that demonstrated some improvement of the gaseous distention of the large and small bowel. She was hypertensive, and hypokalemic, and she was admitted for treatment of those problems. This morning, she tells me she is feeling much better. She cannot recall if she had a bowel movement overnight. She denies any nausea or vomiting. She is hungry. Review of Systems Constitutional Constitutional: Denies fever(s) and Denies poor appetite Eyes Eyes: Reports system reviewed and no additional complaints, except as documented ENT Ears, Nose, Mouth, and Throat: Reports system reviewed and no additional complaints, except as documented Cardiovascular Cardiovascular: Reports chest pain and Denies dyspnea Respiratory Respiratory: Denies chest congestion, Denies cough and Denies dyspnea Gastrointestinal Gastrointestinal: Denies abdominal pain, Denies bloating and Denies nausea Genitourinary Genitourinary: Reports system reviewed and no additional complaints, except as documented Musculoskeletal Musculoskeletal: Reports system reviewed and no additional complaints, except as documented PFSH All Active Problems (Updated 06/18/25 @ 00:25 by MIGUEL GUZMÁN) Hypokalemia (Acute) Chest pain of uncertain etiology (Acute) Chest pain (Acute) Hypertensive urgency (Acute) Sigmoid volvulus (Acute) Chilaiditi's syndrome (Acute) Social History Smoking/Tobacco Use Status: Former Tobacco Use Smoking risk assessment performed?: Yes Alcohol Intake: current Drug use: Current Sobriety Substance use type: does not use Housing: house Do you feel safe at home: Yes Do you feel safe in your relationship?: Yes Exam Const General: cooperative, comfortable and no acute distress Orientation: alert, awake and oriented x3 GI Inspection: normal to inspection and non-distended Palpation: soft, no guarding and nontender Results Last Vital Signs Temp 98.3 F 06/17/25 18:05 Pulse 59 L 06/17/25 22:20 Resp 18 06/17/25 22:20 BP 230/110 H 06/17/25 22:20 Pulse Ox 98 06/17/25 22:10 Labs 06/17/25 18:15 06/17/25 18:00 Labs: Laboratory Results - last 24 hr 06/17/25 06/17/25 06/17/25 18:00 18:15 19:17 WBC 8.99 RBC 4.54 Hgb 12.4 Hct 38.1 MCV 84 MCH 27.3 MCHC 32.5 RDW 13.1 Plt Count 272 MPV 9.8 Immature Gran % 0.2 Neutrophils % 58.7 Lymphocytes % 31.0 Monocytes % 7.6 Eosinophils % 1.7 Basophils % 0.8 Nucleated RBC % 0.0 Absolute Neutrophils 5.28 Absolute Lymphocytes 2.79 Absolute Monocytes 0.68 Absolute Eosinophils 0.15 Absolute Basophils 0.07 Sodium 141 Potassium 2.6 L* D Chloride 104 Carbon Dioxide 24.9 Anion Gap 12.1 H BUN 28 H Creatinine 1.5 H Est GFR (CKD-EPI 2020) 36.12 Glucose 106 Calcium 9.6 Magnesium 2.0 Total Bilirubin 0.8 AST 15 ALT 17 Alkaline Phosphatase 54 Troponin I 7 7 NT-Pro-B Natriuret Pep 1000 H Total Protein 7.4 Albumin 4.2 Lipase 52 06/17/25 20:28 WBC RBC Hgb Hct MCV MCH MCHC RDW Plt Count MPV Immature Gran % Neutrophils % Lymphocytes % Monocytes % Eosinophils % Basophils % Nucleated RBC % Absolute Neutrophils Absolute Lymphocytes Absolute Monocytes Absolute Eosinophils Absolute Basophils Sodium Potassium Chloride Carbon Dioxide Anion Gap BUN Creatinine Est GFR (CKD-EPI 2020) Glucose Calcium Magnesium Total Bilirubin AST ALT Alkaline Phosphatase Troponin I 7 NT-Pro-B Natriuret Pep Total Protein Albumin Lipase
--- NOTE | 2025-06-17 23:30 | W.PM.HP.N ---
Date of service: 06/17/25 Time of Service: 23:30 Assessment and Plan Assessment and plan (1) Sigmoid volvulus: Status: Acute Assessment and plan: Films been reviewed by Dr. Flores of the general surgery service. Recommending overnight monitoring. I have started the patient on simethicone at the recommendation of general surgery (2) Hypokalemia: Status: Acute Assessment and plan: Patient is noted to have hypokalemia but is asymptomatic. Continue with replacement which was started in the ED. EKG has been reviewed and does appear to have some LVH and some T wave inversions in leads I to III and 4. (3) Hypertensive urgency: Status: Acute Assessment and plan: Restart home meds add hydralazine as needed History of Present Illness History of Present Illness Chief Complaint: back pain Narrative: Ms Escamilla is a 74-year-old female who was seen in the ED yesterday and at that time was diagnosed with a sigmoid volvulus. The patient left [place] as she wanted to be transferred to [facility] but they had no rooms. Patient states that after she went home she had a bowel movement and felt much better. Patient came back in today because she was having some back pain and was worried about the volvulus. While she was in the ED she was noted to have hypokalemia and elevated BNP. Patient also had significant hypotension. Her case was reviewed with Dr. Flores by the ED provider who recommended overnight evaluation. The case was also discussed with [facility] surgery who recommended monitoring as well. Per my discussion with the patient's he states that she does feel much better but is willing to stay tonight. Patient states that her last surgery on her belly was a cholecystectomy which was open in about 2009. Patient stated her pain is essentially resolved Review of Systems All systems reviewed & are unremarkable except as noted in HPI and below PFSH All Active Problems (Updated 06/17/25 @ 21:29 by BEV [place]) Hypokalemia (Acute) Chest pain of uncertain etiology (Acute) Chest pain (Acute) Hypertensive urgency (Acute) Sigmoid volvulus (Acute) Chilaiditi's syndrome (Acute) Social History Smoking/Tobacco Use Status: Former Tobacco Use Smoking risk assessment performed?: Yes Alcohol Intake: current Drug use: Current Sobriety Substance use type: does not use Housing: house Do you feel safe at home: Yes Do you feel safe in your relationship?: Yes Meds Allergies and Home Medications Allergies Allergy/AdvReac Type Severity Reaction Status Date / Time Penicillins Allergy Severe Anaphylaxsi Unverified 06/16/25 15:57 s oxcarbazepine Allergy Intermediate Skin Rash Unverified 06/16/25 15:57 Tetracyclines Allergy Intermediate Skin Rash Unverified 06/16/25 15:57 adhesive Allergy Mild Skin Rash Unverified 06/16/25 15:57 Latex, Natural Rubber Allergy Mild Skin Rash Unverified 06/16/25 15:57 hydroxyzine AdvReac Intermediate anxiety Unverified 06/16/25 15:57 zolpidem (Zolpidem) AdvReac Unknown unknown Unverified 06/16/25 15:57 Home Medications ?Medication ?Instructions ?Recorded ?Confirmed ?Type albuterol sulfate 90 mcg/actuation 2 puff inhalation DIRECTED PRN 03/01/14 06/16/25 History aerosol inhaler (Ventolin HFA) cetirizine 10 mg tablet 10 mg PO DAILY 03/01/14 06/16/25 History fluocinolone 0.025 % topical cream 1 inch topical BID 03/01/14 06/16/25 History naproxen sodium 220 mg capsule 500 mg PO PRN PRN 03/01/14 06/16/25 History aluminum-mag hydroxide-simethicone 5 ml PO QHS PRN 06/16/25 06/16/25 History 200 mg-200 mg-20 mg/5 mL oral susp (Antacid) aspirin 81 mg capsule 81 mg PO DAILY 06/16/25 06/16/25 History atorvastatin 20 mg tablet (Lipitor) 20 mg PO DAILY 06/16/25 06/16/25 History calcium 600 mg capsule 600 mg PO DAILY 06/16/25 06/16/25 History cholecalciferol (vitamin D3) 10 800 unit PO DAILY 06/16/25 06/16/25 History mcg (400 unit) tablet (Vitamin D3) cyclobenzaprine 5 mg tablet 5 mg PO DAILY PRN 06/16/25 06/16/25 History fluorouracil 5 % topical cream 1 applic topical ONCE 06/16/25 06/16/25 History latanoprost 0.005 % eye drops 1 drp ophthalmic (eye) DAILY PRN 06/16/25 06/16/25 History linaclotide 290 mcg capsule 290 mcg PO DAILY 06/16/25 06/16/25 History (Linzess) metoprolol succinate 25 mg 25 mg PO DAILY 06/16/25 06/16/25 History tablet,extended release 24 hr mometasone-formoterol HFA 100 1 inh inhalation DAILY 06/16/25 06/16/25 History mcg-5 mcg/actuation aerosol inhaler (Dulera) nitroglycerin 0.4 mg sublingual 0.4 mg sublingual Q5M 06/16/25 06/16/25 History tablet pantoprazole 40 mg tablet,delayed 40 mg PO DAILY 06/16/25 06/16/25 History release sumatriptan succinate 25 mg tablet 25 mg PO Q2H PRN 06/16/25 06/16/25 History trazodone 50 mg tablet 50 mg PO QHS PRN 06/16/25 06/16/25 History triamcinolone acetonide 55 mcg intranasal DAILY PRN 06/16/25 06/16/25 History zonisamide 100 mg capsule 200 mg PO QHS 06/16/25 06/16/25 History potassium chloride 20 mEq 20 meq PO DAILY 7 days #7 tabs 06/17/25 Rx tablet,extended release (K-Tab) Exam Narrative Exam Narrative: HEENT-normocephalic atraumatic mucous membranes moist oropharynx clear Neck-no lymphadenopathy no JVD no thyromegaly Cardiovascular-regular rate and rhythm no murmurs gallops Lungs clear to auscultation bilaterally Abdomen-soft nondistended bowel sounds are present but decreased in all 4 quadrants Neurologic-nonfocal Results Labs 06/17/25 18:15 06/17/25 18:00 Labs: Laboratory Results - last 24 hr 06/17/25 06/17/25 06/17/25 18:00 18:15 19:17 WBC 8.99 RBC 4.54 Hgb 12.4 Hct 38.1 MCV 84 MCH 27.3 MCHC 32.5 RDW 13.1 Plt Count 272 MPV 9.8 Immature Gran % 0.2 Neutrophils % 58.7 Lymphocytes % 31.0 Monocytes % 7.6 Eosinophils % 1.7 Basophils % 0.8 Nucleated RBC % 0.0 Absolute Neutrophils 5.28 Absolute Lymphocytes 2.79 Absolute Monocytes 0.68 Absolute Eosinophils 0.15 Absolute Basophils 0.07 Sodium 141 Potassium 2.6 L* D Chloride 104 Carbon Dioxide 24.9 Anion Gap 12.1 H BUN 28 H Creatinine 1.5 H Est GFR (CKD-EPI 2020) 36.12 Glucose 106 Calcium 9.6 Magnesium 2.0 Total Bilirubin 0.8 AST 15 ALT 17 Alkaline Phosphatase 54 Troponin I 7 7 NT-Pro-B Natriuret Pep 1000 H Total Protein 7.4 Albumin 4.2 Lipase 52 06/17/25 20:28 WBC RBC Hgb Hct MCV MCH MCHC RDW Plt Count MPV Immature Gran % Neutrophils % Lymphocytes % Monocytes % Eosinophils % Basophils % Nucleated RBC % Absolute Neutrophils Absolute Lymphocytes Absolute Monocytes Absolute Eosinophils Absolute Basophils Sodium Potassium Chloride Carbon Dioxide Anion Gap BUN Creatinine Est GFR (CKD-EPI 2020) Glucose Calcium Magnesium Total Bilirubin AST ALT Alkaline Phosphatase Troponin I 7 NT-Pro-B Natriuret Pep Total Protein Albumin Lipase Last Vital Signs Temp 36.8 C 06/17/25 18:05 Pulse 59 L 06/17/25 22:20 Resp 18 06/17/25 22:20 BP 230/110 H 06/17/25 22:20 Pulse Ox 98 06/17/25 22:10 Time Spent Time spent with Patient: <40 minutes Time was spent: preparing to see the patient(eg.review tests), obtaining and/or reviewing separately otained hiistory, ordering medications,tests, procedures, referring, communicating with other health career development engineer, indepentently interpreting results, counseling the patient and care coordination
[2025-06-18] VITALS (8 sets, daily range): BP systolic 138–178; BP diastolic 66–98; PULSE 56–62; RESP 16–20; TEMP 36.2–37.2; O2SAT 96–98
--- NOTE | 2025-06-18 00:01 | DI.VRAD_ITS ---
PROCEDURE INFORMATION: Exam: XR Abdomen Exam date and time: 06/17/2025 10:55 PM Age: 74 years old Clinical indication: Abdominal pain; Other: Abnormal gas pattern TECHNIQUE: Imaging protocol: Radiologic exam of the abdomen. Views: 2 Views. Upright and supine views. COMPARISON: No relevant prior studies available. FINDINGS: Gastrointestinal tract: There is marked gaseous distension of the bowel. A paucity of gas is visualized in the rectosigmoid. Differential air-fluid levels are visualized on the upright view. No pneumatosis. Intraperitoneal space: No pneumoperitoneum. Bones/joints: Unremarkable for age. IMPRESSION: Marked gaseous distension of the bowel with multiple air-fluid levels and paucity of gas in the distal colon, suspicious for bowel obstruction. Differential considerations include ileus. Dictated and Authenticated by: Ursula Monzon MD. Orderin Bola Hensley MD
--- NOTE | 2025-06-18 00:22 | W.PC.ACHO ---
Registration Status: REG ER Primary Language: Preferred Language: ED Information & Data Chief Complaint Chest Pain 06/17/25 19:14 Triage Note [facility] [place] due to 06/17/25 18:05 altered lab values. needs cardiac cath. wanted her to go to [facility] [place]. [facility]s brought pt here. pt took 325 asa and 1 own nitro and ems gave her 1 nitro. 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 chest pain behind her heart. Most Recent Vital Signs Temperature 36.8 C 06/17/25 18:05 Temperature Source Tympanic 06/17/25 18:05 Pulse 54 L 06/17/25 23:46 Pulse 55 L 06/17/25 22:40 Respiratory Rate 11 L 06/17/25 22:40 Respiratory Effort Normal 06/17/25 19:06 Respiratory Depth Normal 06/17/25 19:06 Respiratory Pattern Normal 06/17/25 19:06 Blood Pressure 178/69 H 06/17/25 23:46 Blood Pressure Mean 110 06/17/25 23:46 Pulse Oximetry 96 06/17/25 23:46 Oxygen Delivery Method Room Air 06/17/25 18:05 Oxygen Flow Rate 0 06/17/25 18:05 Pain Level 3 06/17/25 18:05 Allergies Penicillins Allergy (Severe, Unverified 06/16/25 15:57) Anaphylaxsis oxcarbazepine Allergy (Intermediate, Unverified 06/16/25 15:57) Skin Rash Tetracyclines Allergy (Intermediate, Unverified 06/16/25 15:57) Skin Rash blisters, opened and weeping adhesive Allergy (Mild, Unverified 06/16/25 15:57) Skin Rash Latex, Natural Rubber Allergy (Mild, Unverified 06/16/25 15:57) Skin Rash hydroxyzine Adverse Reaction (Intermediate, Unverified 06/16/25 15:57) anxiety zolpidem (Zolpidem) Adverse Reaction (Unknown, Unverified 06/16/25 15:57) unknown Active Medications Generic Name Dose Route Start Last Admin Trade Name Freq PRN Reason Stop Dose Admin Sodium Chloride 1,000 mls @ 125 mls/hr 06/17/25 21:00 06/17/25 21:35 Saline 1000ml Bag IV 0 mls/hr INFUSION MERYL Infusion IV IV Catheter Type [Right Saline Lock Antecubital] IV Catheter Type [Left Saline Lock Antecubital] IV Catheter Gauge [Right 20 Antecubital] IV Catheter Gauge [Left 18 Antecubital] Diet Orders Category Date Time Status Nothing Per Oral [DIET] Nutrition 06/17/25 23:29 Active Diagnostics 06/18/25 06/17/25 06/17/25 Range/Units 05:35 20:28 19:17 WBC Pending (4.4-10.8) 10^3/uL RBC Pending (3.93-5.22) 10^6/uL Hgb Pending (11.2-15.7) g/dL Hct Pending (36.0-46.0) % MCV Pending (80-95) fL MCH Pending (27.0-33.0) pg MCHC Pending (32.0-36.0) % RDW Pending (11.7-14.6) % Plt Count Pending (130-400) 10^3/uL MPV Pending (8.0-11.0) fL Immature Gran % Pending % Neutrophils % Pending % Lymphocytes % Pending % Monocytes % Pending % Eosinophils % Pending % Basophils % Pending % Nucleated RBC % (0.0-0.3) % Absolute Neutrophils Pending (1.2-6.7) 10^3/uL Absolute Lymphocytes Pending (1.2-3.4) 10^3/uL Absolute Monocytes Pending (0.1-0.8) 10^3/uL Absolute Eosinophils Pending (0.0-0.7) 10^3/uL Absolute Basophils Pending (0.0-0.2) 10^3/uL Sodium Pending (136-145) mmol/L Potassium Pending (3.5-5.1) mmol/L Chloride Pending (98-107) mmol/L Carbon Dioxide Pending (21.0-32.0) mmol/L Anion Gap Pending (3-11) mmol/L BUN Pending (7-18) mg/dL Creatinine Pending (0.55-1.02) mg/dL Est GFR (CKD-EPI 2020) Pending (mL/min/1.73m2) Glucose Pending (74-106) mg/dL Calcium Pending (8.5-10.1) mg/dL Magnesium (1.8-2.4) mg/dL Total Bilirubin Pending (0.2-1.0) mg/dL AST Pending (15-37) U/L ALT Pending (14-59) U/L Alkaline Phosphatase Pending (46-116) U/L Troponin I 7 7 (<or=51) ng/L NT-Pro-B Natriuret Pep (<300) pg/mL Total Protein Pending (6.4-8.2) g/dL Albumin Pending (3.4-5.0) g/dL Lipase (<78) U/L 06/17/25 06/17/25 Range/Units 18:15 18:00 WBC 8.99 (4.4-10.8) 10^3/uL RBC 4.54 (3.93-5.22) 10^6/uL Hgb 12.4 (11.2-15.7) g/dL Hct 38.1 (36.0-46.0) % MCV 84 (80-95) fL MCH 27.3 (27.0-33.0) pg MCHC 32.5 (32.0-36.0) % RDW 13.1 (11.7-14.6) % Plt Count 272 (130-400) 10^3/uL MPV 9.8 (8.0-11.0) fL Immature Gran % 0.2 % Neutrophils % 58.7 % Lymphocytes % 31.0 % Monocytes % 7.6 % Eosinophils % 1.7 % Basophils % 0.8 % Nucleated RBC % 0.0 (0.0-0.3) % Absolute Neutrophils 5.28 (1.2-6.7) 10^3/uL Absolute Lymphocytes 2.79 (1.2-3.4) 10^3/uL Absolute Monocytes 0.68 (0.1-0.8) 10^3/uL Absolute Eosinophils 0.15 (0.0-0.7) 10^3/uL Absolute Basophils 0.07 (0.0-0.2) 10^3/uL Sodium 141 (136-145) mmol/L Potassium 2.6 L* D (3.5-5.1) mmol/L Chloride 104 (98-107) mmol/L Carbon Dioxide 24.9 (21.0-32.0) mmol/L Anion Gap 12.1 H (3-11) mmol/L BUN 28 H (7-18) mg/dL Creatinine 1.5 H (0.55-1.02) mg/dL Est GFR (CKD-EPI 2020) 36.12 (mL/min/1.73m2) Glucose 106 (74-106) mg/dL Calcium 9.6 (8.5-10.1) mg/dL Magnesium 2.0 (1.8-2.4) mg/dL Total Bilirubin 0.8 (0.2-1.0) mg/dL AST 15 (15-37) U/L ALT 17 (14-59) U/L Alkaline Phosphatase 54 (46-116) U/L Troponin I 7 (<or=51) ng/L NT-Pro-B Natriuret Pep 1000 H (<300) pg/mL Total Protein 7.4 (6.4-8.2) g/dL Albumin 4.2 (3.4-5.0) g/dL Lipase 52 (<78) U/L Intake and Output - 24 Hour Total 06/17/25 17:55 thru 06/17/25 21:35 Intake Total 285.417 Balance 285.417 Weight 55.338 kg Intake: IV 285.417 Falls Risk Assessment History of Falls No History 06/17/25 19:05 Contributing Factors No Factors 06/17/25 19:05 Ambulatory Aids Independent 06/17/25 19:05 Tubes/Lines None 06/17/25 19:05 Gait Evaluation No gait disturbance 06/17/25 19:05 Cognition No cognitive impairment 06/17/25 19:05 Fall Total Score 0 06/17/25 19:05 Level of Risk Standard/Low Risk 06/17/25 19:05 Problems Hypokalemia (Acute) Hypertensive urgency (Acute) Sigmoid volvulus (Acute) Notes 06/17/25 22:41 Nursing Notes by Rohit Rebollar PT refused 2nd bag of IV potassium. ED provider aware and PO was ordered and given instead. Nursing Note: Initialized on 06/17/25 22:41 - END OF NOTE 06/17/25 22:22 Nursing Notes by Rohit Rebollar ed PA aware of PTs BPNursing Note: Initialized on 06/17/25 22:22 - END OF NOTE v v v v v v v v v Sending and/or Receiving Nurses: Please use comment section below to note any information pertinent to the patient hand-off not included above. Information / Comments: Pt admit to med/surg rm 205 from ED. Dx sigmoid volvulus. K - is 2.6 first bag given 20 meq. in ED. Pt refused second dose. PO K ordered and given. Pt is hypertensive and reported chest pain to calex, nitro given to no effect. Fentynal 100mcg, and aspirin 325 mg, to good effect. No pain att. Metoprolol given in ED and BP is coming down. Report received from:Rohit GRIMM RN called t [phone].
[2025-06-18] MEDS: Normal Saline 1,000 ML 125 ML IV (01:48)
[2025-06-18] MEDS: traZODone 50 MG TAB PO (02:20)
[2025-06-18] MEDS: Zonisamide 100 MG CAP 200 MG PO (02:34)
--- NOTE | 2025-06-18 07:00 | DI.RAD_ITS ---
Exam(s) XR ABDOMEN FLAT UPRIGHT EXAM: 2D digital imaging was performed. CLINICAL HISTORY: sbo. COMPARISON: CR,XR XR ABDOMEN FLAT UPRIGHT from 06/17/2025 TECHNIQUE: Supine and upright views of the abdomen was performed. Two images were obtained. FINDINGS: LUNG BASES: Clear. BOWEL GAS PATTERN: There are persistent mild to moderately distended loops of small and large bowel. Scattered air-fluid levels are seen. FREE AIR: None. CALCIFICATIONS: No radiopaque calcifications. OSSEOUS STRUCTURES: Normal for age. OTHER FINDINGS: There are surgical clips in the right upper quadrant of the abdomen. IMPRESSION: Persistent dilated loops of small and large bowel which may represent an ileus. Bowel obstruction cannot be excluded. DATA REPOSITORY: RADIATION DOSE DELIVERED:
[2025-06-18 07:04] LABS: Abs Immature Grans 0.01 10^3/uL (0.0-0.06); HCT 37.1 % (36.0-46.0); HGB 12.2 g/dL (11.2-15.7); Immature Grans % 0.1 %; MCH 27.8 pg (27.0-33.0); MCHC 32.9 % (32.0-36.0); MCV 85 fL (80-95); MPV 10.4 fL (8.0-11.0); Platelet Count 217 10^3/uL (130-400); RBC 4.39 10^6/uL (3.93-5.22); RDW 13.2 % (11.7-14.6); RDW-SD 40.7 fL; WBC 7.27 10^3/uL (4.4-10.8)
[2025-06-18 07:29] LABS: ALT 13 U/L (14-59); AST 10 U/L (15-37); Albumin 3.4 g/dL (3.4-5.0); Alkaline Phosphatase 46 U/L (46-116); Anion Gap 9.8 mmol/L (3-11); BUN 18 mg/dL (7-18); Bilirubin, Total 0.6 mg/dL (0.2-1.0); CO2 21.2 mmol/L (21.0-32.0); Calcium 8.5 mg/dL (8.5-10.1); Chloride 113 mmol/L (98-107); Estimated GFR 76.79 (mL/min/1.73m2); Glucose 80 mg/dL (74-106); Potassium 4.1 mmol/L (3.5-5.1); Sodium 144 mmol/L (136-145); Total Protein 6.2 g/dL (6.4-8.2)
[2025-06-18] MEDS: Cetirizine 10 MG TAB PO (08:01)
[2025-06-18] MEDS: Pantoprazole 40 MG TABCR PO (08:02)
[2025-06-18] MEDS: Metoprolol CR 25 MG TABCR PO (08:02)
[2025-06-18] MEDS: Aspirin 81 MG CHEW PO (08:02)
[2025-06-18] MEDS: Atorvastatin 20 MG TAB PO (08:02)
[2025-06-18] MEDS: Cholecalciferol (Vitamin D3) 400 UNIT TAB 800 UNIT PO (08:02)
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
[2025-06-18] MEDS: Simethicone 80 MG CHEW 40 MG PO ×2 (09:16→12:30)
--- NOTE | 2025-06-18 11:10 | W.PM.PROGNOT ---
Date of Service Date of service: 06/18/25 Time of Service: 11:11 Assessment and Plan Assessment and plan (1) Sigmoid volvulus: Status: Acute Assessment and plan: Films been reviewed by Dr. Flores of the general surgery service. Recommending overnight monitoring. I have started the patient on simethicone at the recommendation of general surgery (2) Hypokalemia: Status: Acute Assessment and plan: Patient is noted to have hypokalemia but is asymptomatic. Continue with replacement which was started in the ED. EKG has been reviewed and does appear to have some LVH and some T wave inversions in leads I to III and 4. (3) Hypertensive urgency: Status: Acute Assessment and plan: Restart home meds add hydralazine as needed Objective Last Vital Signs Temp 36.7 C 06/18/25 07:18 Pulse 58 L 06/18/25 07:18 Resp 16 06/18/25 07:18 BP 138/66 06/18/25 10:07 Pulse Ox 98 06/18/25 07:18 Laboratory Results - last 24 hr 06/17/25 06/17/25 06/17/25 18:00 18:15 19:17 WBC 8.99 RBC 4.54 Hgb 12.4 Hct 38.1 MCV 84 MCH 27.3 MCHC 32.5 RDW 13.1 Plt Count 272 MPV 9.8 Immature Gran % 0.2 Neutrophils % 58.7 Lymphocytes % 31.0 Monocytes % 7.6 Eosinophils % 1.7 Basophils % 0.8 Nucleated RBC % 0.0 Absolute Neutrophils 5.28 Absolute Lymphocytes 2.79 Absolute Monocytes 0.68 Absolute Eosinophils 0.15 Absolute Basophils 0.07 Sodium 141 Potassium 2.6 L* D Chloride 104 Carbon Dioxide 24.9 Anion Gap 12.1 H BUN 28 H Creatinine 1.5 H Est GFR (CKD-EPI 2020) 36.12 Glucose 106 Calcium 9.6 Magnesium 2.0 Total Bilirubin 0.8 AST 15 ALT 17 Alkaline Phosphatase 54 Troponin I 7 7 NT-Pro-B Natriuret Pep 1000 H Total Protein 7.4 Albumin 4.2 Lipase 52 06/17/25 06/18/25 20:28 06:10 WBC 7.27 RBC 4.39 Hgb 12.2 Hct 37.1 MCV 85 MCH 27.8 MCHC 32.9 RDW 13.2 Plt Count 217 MPV 10.4 Immature Gran % 0.1 Neutrophils % 45.2 Lymphocytes % 43.2 Monocytes % 8.1 Eosinophils % 2.8 Basophils % 0.6 Nucleated RBC % 0.0 Absolute Neutrophils 3.29 Absolute Lymphocytes 3.14 Absolute Monocytes 0.59 Absolute Eosinophils 0.20 Absolute Basophils 0.04 Sodium 144 Potassium 4.1 D Chloride 113 H Carbon Dioxide 21.2 Anion Gap 9.8 BUN 18 Creatinine 0.8 Est GFR (CKD-EPI 2020) 76.79 Glucose 80 Calcium 8.5 Magnesium Total Bilirubin 0.6 AST 10 L ALT 13 L Alkaline Phosphatase 46 Troponin I 7 NT-Pro-B Natriuret Pep Total Protein 6.2 L Albumin 3.4 Lipase
[2025-06-18] MEDS: Polyethylene Glycol 3350 17 GM PACKET PO (12:30)
[2025-06-18] MEDS: Bisacodyl 5 MG TABEC PO (12:30)
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
== END 2025-06-18 15:28 | disposition home or self-care (01) ==
LOC: ER 22:48 → MS 06-18 00:25
PROVIDERS: Admitting Provider Hospitalist; Emergency Provider Physician Assistant; Responsible Provider Nurse Practitioner Acute Care; Visit Provider Hospitalist
DX: K56.2 Volvulus (principal); I16.0 Hypertensive urgency; I10 Essential (primary) hypertension; E87.6 Hypokalemia; N13.30 Unspecified hydronephrosis; R07.89 Other chest pain; K59.00 Constipation, unspecified; Q43.3 Congenital malformations of intestinal fixation; Z87.891 Personal history of nicotine dependence; M54.9 Dorsalgia, unspecified; E83.42 Hypomagnesemia; Z59.82 Transportation insecurity; Z58.6 Inadequate drinking-water supply
CPT/HCPCS: 00123; 36415; 80053; 83690; 93005; 96361; 96365; 99285; 71046; 74019; 83735; 83880; 84484; 85025; 93010; 99222; 99239; G0378; J3475; J3480; J3490